=== PATIENT | female | born 1960 | race Caucasian/White ===

== ENCOUNTER 2016-02-20 19:17 | Observation (INO) | payer OTHER ==
--- NOTE | ~2016-02-20 | HP ---
History And Physical [place] [id number] [facility] [place] [place]. [address] NAME: NATIVIDAD FARIAS : 58 STATUS : ADM Dima PAT#: [id number] AGE: 56 ADM/REG DATE : 02/20/16 MR#: [id number] REPORT SERV DATE: 02/21/16 DICTATED BY: KATHY SIFUENTES DATE: 02/20/16 REPORT STATUS : Draft TRANSCRIBED BY: MODSkylar DATE: 02/20/16 DATE OF ADMISSION: 02/20/2016 POINT OF ENTRY: [facility] Emergency Department CHIEF COMPLAINT: Hypotension. HISTORY OF PRESENT ILLNESS: Ms Farias is a 56-year-old female with a history of hypertension and chronic pain, on chronic narcotics, who is referred to the [facility] Emergency Department today for reports of low blood pressure. The patient was being seen [facility] today and they checked her vitals and noted to have blood pressures of 70s/50s and referred her to the emergency department. The patient states that she has been doing well except for battling an upper respiratory tract and sinus tract infection for which she is on antibiotics. She does report a subjective fever a few days ago, but nothing more recent. Denies any chest pain, palpitations, cough, sputum production, shortness of breath, abdominal pain, nausea, constipation, dysuria, lower extremity edema, melena, hematochezia, or hemoptysis. Does report an isolated episode of emesis yesterday as well as some occasional loose stools. Reports a good appetite and oral intake and no changes in her urine output. Initial evaluation in the emergency department, overall blood pressure initially was 95/54. That has improved to 100s/60s with some IV fluids. Labs notable for a BUN of 42, creatinine of 2.62. White count of 13,700. She was subsequently admitted to the Hospitalist Service for further evaluation and management. REVIEW OF SYSTEMS: Comprehensive review of systems otherwise negative unless listed in history of present illness. PREVIOUS MEDICAL HISTORY: 1. Hypertension. 2. Chronic pain, on chronic narcotics. 3. Obstructive sleep apnea, noncompliant with CPAP therapy. SURGICAL HISTORY: 1. Cholecystectomy. 2. Multiple spinal nerve ablations. ALLERGIES: TO PENICILLIN AND SULFA DRUGS. HOME MEDICATIONS: 1. Baclofen 5 mg to 10 mg t.i.d. p.r.n. 2. Clindamycin 300 mg t.i.d. 3. Prozac 20 mg daily. History And Physical [address] [address] NAME: NATIVIDAD FARIAS : 58 STATUS : ADM Dima PAT#: [id number] AGE: 56 ADM/REG DATE : 02/20/16 MR#: [id number] REPORT SERV DATE: 02/21/16 DICTATED BY: KATHY SIFUENTES DATE: 02/20/16 REPORT STATUS : Draft TRANSCRIBED BY: EB DATE: 02/20/16 4. Gabapentin 100 mg t.i.d. p.r.n. 5. [place] 5/325 one tab q.6 hours p.r.n. 6. Lisinopril and hydrochlorothiazide 20/25 one tab daily. 7. Mobic 15 mg daily p.r.n. 8. Zofran 4 mg b.i.d. p.r.n. 9. Phendimetrazine 35 mg p.r.n. 10.Fwht-fre-vbiktxw herbal supplement. 11.Vicks NyQuil. 12.Calcium supplement. SOCIAL HISTORY: Denies any tobacco. Occasional alcohol intake. Denies illicits. FAMILY MEDICAL HISTORY: Mother with coronary disease and hypertension. Father is . Has a history of rheumatoid arthritis and end-stage renal disease. Siblings with COPD and bipolar disease. LABS AND IMAGIN. White count is 13,700, hemoglobin is 12.1, hematocrit is 38.5, and platelet count is 520. INR is 1.1. 2. Sodium is 141, potassium 3.4, chloride 107, carbon dioxide 29, BUN 42, creatinine 2.62, glucose is 106, calcium is 9.7, magnesium is 2.2. Protein is 8.0, albumin is 3.4, bilirubin is 0.6, ALT is 30, AST 15, alkaline phosphatase is 148. 3. Lactic acid is 1.4. 4. Troponin less than 0.02. 5. Urinalysis: Specific gravity is 1.021, cloudy with trace ketones, large leukocyte esterase, 5 white blood cells per high-powered field, as well as 21 epithelial cells. 6. Chest x-ray, per my review, shows no acute cardiopulmonary abnormality. 7. EKG, per my review, shows normal sinus rhythm. No evidence of any acute ischemia or infarction. PHYSICAL EXAMINATION: VITAL SIGNS: Temperature is 97.3 degrees Fahrenheit, pulse is 76, respirations 16, saturating 98% on room air, blood pressure 95/54. On recheck, blood pressure is now 107/60, pulse is 73. GENERAL: The patient is awake, alert, in no acute distress. Resting comfortably. She is a well-developed, well-nourished, female. is at bedside. HEENT: Atraumatic, normocephalic. Dry mucous membranes. Pupils are equal, round, and reactive to light and accommodation. Extraocular eye movements are intact. No scleral icterus. NECK: No jugular venous distention. No carotid bruits. CARDIAC: Regular rate and rhythm. No murmurs, rubs, or gallops. Normal S1, S2. LUNGS: Clear to auscultation bilaterally. No wheezes, rhonchi, or crackles. ABDOMEN: Soft, nontender, and nondistended. Good bowel sounds. No rebound, guarding, or rigidity. EXTREMITIES: Warm and perfused. No cyanosis, clubbing, or edema. SKIN: Warm and dry. PSYCH: Affect appropriate. History And Physical [address] [address] NAME: NATIVIDAD FARIAS : 58 STATUS : ADM Dima PAT#: [id number] AGE: 56 ADM/REG DATE : 02/20/16 MR#: [id number] REPORT SERV DATE: 02/21/16 DICTATED BY: KATHY SIFUENTES DATE: 02/20/16 REPORT STATUS : Draft TRANSCRIBED BY: MODSkylar DATE: 02/20/16 NEURO: Alert and oriented x3. Cranial nerves II through XII are grossly intact. Speech is normal. Gait is not assessed. ASSESSMENT AND PLAN: Ms Farias is a 56-year-old female, who is referred to the emergency department for reports of hypotension and found to have evidence of acute kidney injury, likely secondary to dehydration. Problem list: 1. Acute kidney injury. 2. Hypotension. 3. Dehydration. 4. Leukocytosis. 5. Asymptomatic pyuria. 6. Sinus infection. PLAN: 1. Acute kidney injury. Likely multifactorial in etiology from the patient's known nephrotoxic medications including Mobic and lisinopril and hydrochlorothiazide as well as evidence of dehydration, and hypotension. We will hold her offending medications. Provide aggressive IV fluid hydration. Check renal ultrasound as well as urine lytes. 2. Hypotension. This seems to have resolved with some IV fluid hydration. We will hold her antihypertensives. We will check a set of orthostatic vital signs as well as a cortisol level in the morning. 3. Leukocytosis, likely secondary to her sinus infection as chest x-ray is clear. Urinalysis does have pyuria, but it was not a sterile sample. We will check a procalcitonin level as well as a set of blood cultures. 4. Asymptomatic pyuria. The patient does have 5 white cells per high-powered field and large leukocyte esterase, however, it was not a sterile sample and she is asymptomatic. We will empirically cover it by transitioning her clindamycin over to Levaquin. 5. Sinus infection. We will transition her antibiotics from clindamycin over to Levaquin. 6. Deep venous thrombosis prophylaxis. Heparin subcu. CODE STATUS: The patient wished to be full code. JCB/MODL Kathy Sifuentes MD / [id number] CC: MD Dr. Sanket Babcock
--- NOTE | ~2016-02-20 | DS ---
Discharge Summary [facility] [address] [place]. [address] NAME: NATIVIDAD PATEL : 58 STATUS : ADM Dima PAT#: [id number] AGE: 56 ADM/REG DATE : 02/20/16 MR#: [id number] REPORT SERV DATE: 02/22/16 DICTATED BY: Christy LYLE DATE: 02/22/16 REPORT STATUS : Draft TRANSCRIBED BY: EB DATE: 02/22/16 ADMISSION DATE: 02/20/2016 DISCHARGE DATE: 02/22/2016 DIAGNOSES AT DISCHARGE: Hypotension, resolved, acute kidney injury, resolved, sleep apnea, chronic pain syndrome. CONSULTS: None. PROCEDURES: None. BRIEF SUMMARY: A 56-year-old female patient was admitted with hypotension and acute kidney injury in the setting of chronic pain syndrome. The patient had recently adjusted medications and additional medications to manage her chronic back related symptoms and has been on hydrochlorothiazide with an RADHA inhibitor for many years. The patient was found on admission to have low blood pressure that did respond to fluid resuscitation as well as acute kidney injury. The patient's home blood pressure medicine was discontinued. Creatinine returned to normal with IV fluids and discontinuation of medication. Renal ultrasound was negative for obstruction. The patient did have abnormal urinalysis consistent with infection, this was treated with Levaquin. On 02/21, the creatinine was back to 0.68. She was afebrile feeling her normal self, but her systolic blood pressure was still in the 110-115 range. Decision was made to discharge home on her current medications, but not resume her blood pressure medicine at this time. She will follow up with her primary care provider in approximately seven to ten days to have her blood pressure rechecked at that time. If she does merit the institution of antihypertensive, which suggested they use a renal neutral medications such as Norvasc in the place of an RADHA inhibitor or ARB. She will continue Levaquin 750 mg daily for five additional days and this prescription is provided at discharge. She will continue her other medications from her home med list with the exception of lisinopril/ hydrochlorothiazide. Further recommendations pending outpatient followup with primary care. JENNIFER/EB Christy Lyle M.D. / [id number] CC: Ashley Ortega MD
[2016-02-20 16:00] LABS: BASOPHILS 0.4 %; BASOPHILS ABSOLUTE 0.06 10/3/uL (0.0-0.16); EOSINOPHILS 1.1 %; EOSINOPHILS ABSOLUTE 0.15 10/3/uL (0.0-0.53); HEMATOCRIT 38.5 % (36.0-48.0); HEMOGLOBIN 12.4 g/dL (12.0-16.0); IMMATURE GRANULOCYTES 0.2 %; IMMATURE GRANULOCYTES ABSOLUTE 0.03 10/3/uL (0.0-0.11); LYMPHOCYTES 28.1 %; LYMPHOCYTES ABSOLUTE 3.83 10/3/uL (0.67-4.30); MEAN CORPUS HGB CONC 32.2 g/dL (32.0-36.0); MEAN CORPUSCULAR HEMOGLOB 26.7 pg (26.0-34.0); MEAN CORPUSCULAR VOLUME 82.8 fL (80-100); MONOCYTES 6.4 %; MONOCYTES ABSOLUTE 0.87 10/3/uL (0.21-1.20); NEUTROPHILS 63.8 %; NEUTROPHILS ABSOLUTE 8.71 10/3/uL (2.02-8.40); PLATELET COUNT 528 10/3/uL (150-400); RED CELL COUNT 4.65 10/6/uL (4.0-5.6)
[2016-02-20 16:02] LABS: ER CBC TAT 0 Hrs 12 Mins; MANUAL DIFF NO %; WHITE BLOOD CELLS 13.7 10/3/uL (4.5-10.5)
[2016-02-20 16:10] LABS: INTERNATIONAL NORMAL RATI 1.1 UNITS (-); PARTIAL THROMBO TIME 34.4 SEC (22.5-37.2); PROTIME (NOT ORD) 13.7 SEC (12.0-14.5)
[2016-02-20 16:22] LABS: ALBUMIN 3.4 G/DL (3.5-5.0); CALCIUM, SERUM 9.7 MG/DL (8.5-10.4); CHLORIDE, SERUM 102 MMOL/L (96-112); CO2 (CARBON DIOXIDE) 29 MMOL/L (24-34); GLUCOSE, SERUM 106 MG/DL (60-99); POTASSIUM, SERUM 3.4 MMOL/L (3.5-5.3); SGOT(AST) 15 U/L (5-40); SGPT(ALT) 30 U/L (5-65); SODIUM, SERUM 141 MMOL/L (135-148); TOTAL BILIRUBIN 0.6 MG/DL (0-1.2); TROPONIN I <0.02 NG/ML (<0.05)
[2016-02-20 16:24] LABS: ALKALINE PHOSPHATASE 148 U/L (45-117); BUN (BLOOD UREA NITROGEN) 42 MG/DL (6-23); CHEST PAIN PROFILE TAT 0 Hrs 32 Mins; CREATININE 2.62 MG/DL (0.55-1.02); DIRECT BILIRUBIN < 0.1 MG/DL (0.0-0.4); GFR AFRICAN AMERICAN 23 ML/MIN (>=60); GFR NON AFRICAN AMERICAN 20 ML/MIN (>=60); INDIRECT BILIRUBIN(NOT ORDER) 0.5 MG/DL (0.1-0.9)
[2016-02-20 18:01] LABS: ASCORBIC ACID (UR NOT ORDER) NEG (NEG); BILIRUBIN, URINE MODERATE (NEG); ER URINALYSIS TAT 0 Hrs 24 Mins; KETONE, URINE TRACE MG/DL (NEG); LEUKOCYTE ESTERASE(NOT OR LARGE (NEG); NITRITE (URINE) NEG (NEG); WBC (NOT ORDERED) (RFLEX) 5 (0-5)
[~2016-02-20 19:17] MED LIST: CALCIUM PO; CLEOCIN300 MG PO; LIOR10 PO; MOBIC15 MG PO; MSM PO; NEUR100 PO; NORCO1 TA1 PO; PHENDIMETRAZ35 MG PO; PROZAC PO; VICKS NYQUIL PO; ZESTORETIC1 TA1 PO; ZOFRAN4 PO; [UNRECOGNIZED DRUG - OTHER] PO
[2016-02-20 23:11] LABS: FREE T4 1.21 NG/DL (0.76-1.46)
[2016-02-21 05:12] LABS: ALBUMIN 2.7 G/DL (3.5-5.0); BASOPHILS 0.2 %; BASOPHILS ABSOLUTE 0.03 10/3/uL (0.0-0.16); BUN (BLOOD UREA NITROGEN) 35 MG/DL (6-23); CALCIUM, SERUM 8.4 MG/DL (8.5-10.4); CHLORIDE, SERUM 108 MMOL/L (96-112); CO2 (CARBON DIOXIDE) 25 MMOL/L (24-34); CREATININE 1.42 MG/DL (0.55-1.02); EOSINOPHILS 1.9 %; EOSINOPHILS ABSOLUTE 0.24 10/3/uL (0.0-0.53); GFR AFRICAN AMERICAN 47 ML/MIN (>=60); GFR NON AFRICAN AMERICAN 41 ML/MIN (>=60); GLUCOSE, SERUM 109 MG/DL (60-99); HEMOGLOBIN 10.6 g/dL (12.0-16.0); IMMATURE GRANULOCYTES 0.3 %; IMMATURE GRANULOCYTES ABSOLUTE 0.04 10/3/uL (0.0-0.11); LYMPHOCYTES 30.6 %; LYMPHOCYTES ABSOLUTE 3.77 10/3/uL (0.67-4.30); MEAN CORPUS HGB CONC 31.5 g/dL (32.0-36.0); MEAN CORPUSCULAR HEMOGLOB 26.2 pg (26.0-34.0); MEAN CORPUSCULAR VOLUME 83.2 fL (80-100); MEAN PLATELET VOLUME 9.1 fL (9.2-13.0); MONOCYTES 5.9 %; MONOCYTES ABSOLUTE 0.73 10/3/uL (0.21-1.20); NEUTROPHILS 61.1 %; NEUTROPHILS ABSOLUTE 7.51 10/3/uL (2.02-8.40); PLATELET COUNT 444 10/3/uL (150-400); POTASSIUM, SERUM 3.3 MMOL/L (3.5-5.3); RBC DISTRIBUTION WIDTH 13.9 % (12.0-16.0); RED CELL COUNT 4.05 10/6/uL (4.0-5.6); SODIUM, SERUM 144 MMOL/L (135-148); WHITE BLOOD CELLS 12.3 10/3/uL (4.5-10.5)
[2016-02-21 05:15] LABS: HEMATOCRIT 33.7 % (36.0-48.0); MANUAL DIFF NO %
[2016-02-22 04:15] LABS: ALBUMIN 2.8 G/DL (3.5-5.0); BUN (BLOOD UREA NITROGEN) 16 MG/DL (6-23); CALCIUM, SERUM 8.9 MG/DL (8.5-10.4); CHLORIDE, SERUM 110 MMOL/L (96-112); CO2 (CARBON DIOXIDE) 28 MMOL/L (24-34); CREATININE 0.68 MG/DL (0.55-1.02); GFR AFRICAN AMERICAN 113 ML/MIN (>=60); GFR NON AFRICAN AMERICAN 97 ML/MIN (>=60); GLUCOSE, SERUM 113 MG/DL (60-99); PHOSPHORUS, SERUM 2.4 MG/DL (2.5-4.5); POTASSIUM, SERUM 3.5 MMOL/L (3.5-5.3); SODIUM, SERUM 147 MMOL/L (135-148)
[2016-02-22 08:34] LABS: ASCORBIC ACID (UR NOT ORDER) NEG (NEG); BILIRUBIN, URINE NEGATIVE (NEG); CREATININE, URINE 45.9 MG/DL; KETONE, URINE NEGATIVE (NEG); LEUKOCYTE ESTERASE(NOT OR MOD (NEG); WBC (NOT ORDERED) (RFLEX) 26 (0-5)
[2016-02-22] MEDS ORDERED: LEVAQUIN750 MG PO (14:05)
== END 2016-02-22 14:25 | disposition home or self-care (01) ==
LOC: ER 19:17 → CDU1 19:55
PROVIDERS: Emergency Medicine; Internal Medicine
DX: I95.9 Hypotension, unspecified (principal); N17.9 Acute kidney failure, unspecified; G89.4 Chronic pain syndrome; D72.829 Elevated white blood cell count, unspecified; N39.0 Urinary tract infection, site not specified; G47.33 Obstructive sleep apnea (adult) (pediatric); I10 Essential (primary) hypertension; Z90.49 Acquired absence of other specified parts of digestive tract; Z88.0 Allergy status to penicillin; Z88.2 Allergy status to sulfonamides; Z79.2 Long term (current) use of antibiotics; Z79.899 Other long term (current) drug therapy; Z79.891 Long term (current) use of opiate analgesic; Z82.49 Family history of ischemic heart disease and other diseases of the circulatory system; Z82.61 Family history of arthritis
CPT/HCPCS: 71010; 76775; 80048; 80069; 80076; 81001; 82533; 82570; 83605; 83735; 83935; 84145; 84300; 84439; 84443; 84484; 85025; 85610; 85730; 87040; 87086; 93005; 96360; 96372; 96374; 99285; A9270-GY; G0378; J1956